=== PATIENT | male | born 1950 | race Caucasian/White ===

== ENCOUNTER 2017-04-18 10:07 | Day surgery (SDC) | payer MEDICARE ==
[2017-04-18] VITALS (9 sets, daily range): BP systolic 136–155; BP diastolic 78–104; PULSE 70–80; TEMP 97.9
[~2017-04-18] VITALS: Ht 170.2 cm; Wt 83.6 kg
[2017-04-18] MEDS ORDERED: LAMICTAL 100MG100 MG PO (10:49)
[2017-04-18] MEDS ORDERED: COUMADIN 2MG2 MG/TAB PO (10:50)
[2017-04-18] MEDS ORDERED: REMERON30 MG PO (10:50)
[2017-04-18] MEDS ORDERED: LIPITOR 80MG80 MG PO (10:51)
[2017-04-18] MEDS ORDERED: COZAAR 25MG25 MG/TAB PO (10:51)
[2017-04-18] MEDS ORDERED: SYNTHROID 0.0.025 MG PO (10:52)
[2017-04-18] MEDS ORDERED: ASPIRIN E.C. 8181 MG PO (10:53)
[2017-04-18] MEDS ORDERED: NORCO 325 MG-51 TAB PO (10:53)
[2017-04-18] MEDS ORDERED: SINGULAIR 110 MG/TAB PO (10:54)
[2017-04-18] MEDS ORDERED: ATARAX 25MG25 MG/TAB PO (10:55)
[2017-04-18] MEDS ORDERED: NITROSTAT0.4 MG/TAB SL (10:56)
[2017-04-18 11:04] LABS: HEMATOCRIT 41.3 % (42.0-52.0); HEMOGLOBIN 13.7 g/dl (13.5-18.0); MEAN CELL VOLUME 90 fl (80.0-100.0); MEAN CORPUSCULAR HEMOGLOBIN 30 pg (27.0-31.0); MEAN CORPUSCULAR HGB CONC 33 g/dl (33.0-37.0); PLATELET COUNT 226 K/mm3 (130-400); RED BLOOD COUNT 4.58 M/mm3 (4.20-5.60); WHITE BLOOD COUNT 6.4 K/mm3 (4.8-10.8)
[2017-04-18 11:13] LABS: CALCIUM 9.7 mg/dL (8.4-10.2); CREATININE, serum 1.01 mg/dL (0.66-1.25); POTASSIUM 5.1 mmol/L (3.4-5.0)
[2017-04-18 11:22] LABS: PROTHROMBIN TIME 10.6 SECONDS (9.7-12.8)
== END 2017-04-18 15:59 | disposition home or self-care (01) ==
LOC: COL.CAR 10:07
PROVIDERS: Internal Medicine Interventional Cardiology
DX: R07.89 Other chest pain (principal); R94.39 Abnormal result of other cardiovascular function study; I10 Essential (primary) hypertension; I87.2 Venous insufficiency (chronic) (peripheral); E78.2 Mixed hyperlipidemia; I35.1 Nonrheumatic aortic (valve) insufficiency; Z79.01 Long term (current) use of anticoagulants; Z86.718 Personal history of other venous thrombosis and embolism; Z82.49 Family history of ischemic heart disease and other diseases of the circulatory system
CPT/HCPCS: C1760; C1894; J3010

== ENCOUNTER → 2018-12-28 | Outpatient (CLI) | payer MEDICARE ==
[~2018-12-28] MED LIST: ASPIRIN E.C. 8181 MG PO; ATARAX 25MG25 MG/TAB PO; COUMADIN 2MG2 MG/TAB PO; COZAAR 25MG25 MG/TAB PO; LAMICTAL 100MG100 MG PO; LIPITOR 80MG80 MG PO; NITROSTAT0.4 MG/TAB SL; NORCO 325 MG-51 TAB PO; REMERON30 MG PO; SINGULAIR 110 MG/TAB PO; SYNTHROID 0.0.025 MG PO
== END ==
LOC: COL.PUL 10:00
DX: R06.02 Shortness of breath (principal)
CPT/HCPCS: J7674